=== PATIENT | female | born 1930 | race Caucasian/White ===

== ENCOUNTER → 2016-06-16 | Outpatient (CLI) | payer MEDICARE, BC ==
[~2016-06-16] MED LIST: AMITRIPTYLINE H25 MG PO; AMITRYPTYLINE PO; AMLODIPINE BESYL5 MG PO; BYSTOLIC2.5 MG PO; BYSTOLIC5 MG PO; CALCIUM 1,2001 EACH PO; CALCIUM 500 +1 EAC2 PO; CALCIUM 600 MG1 EAC1 PO; CENTRUM SILVER PO; GABAPENTIN600 MG PO; HYDROCODON-ACE1 EAC1 PO; HYDROCODON-ACE1 EAC5 PO; HYDROCODON-ACE1 EAC9 PO; LASIX PO; LEVOTHYROXINE100 MCG PO; LORTAB 7.5-5001 TAB PO; MAXZIDE 75/50 T1 TA1 PO; MAXZIDE 75/50 T1 TAB PO; MOBIC PO; MULTI-VITAMIN1 EACH PO; MULTIPLE VITAMI1 T11 PO; NEURONTIN PO; NEURONTIN300 MG PO; OCUVITE EYE HE1 EACH PO; OMEPRAZOLE20 M2 PO; PERCOCET10 PO; PRILOSEC PO; SYNTHROID PO; SYNTHROID112 MCG PO; SYNTHROID125 PO; TRIAMTERENE-HC1 EACH PO; VITAMIN D 4001 UDTAB PO; VOLTAREN75 MG; VOLTAREN75 MG PO; ZYRTEC PO
--- NOTE | ~2016-06-16 | US6 ---
[facility] A Service of [facility] & [facility] RADIOLOGY TEXT RESULTS PATIENT: LEENA DAWSON [facility] UNIT #: [id number] AGE: [address]: Phuong Coelho APRN SEX: F ORDER DR: [id number] [facility] [address]. [place], [place] [address] [id number] O MR#: [id number] Acc #: [id number] NAME: LEENA DAWSON. : 1930 SEX: F STUDY DATE/TIME: 06/16/2016 8:54 [facility] RO[facility]: STUDY DESCRIPTION: US Abdominal Limited Attending Physician: Phuong Coelho A.P.R.N. Referring Physician: Phuong Coelho A.P.R.N. Ordering Physician: Phuong Coelho A.P.R.N. Primary Care Physician: Ethan Gill M.D. MEDICAL IMAGING REPORT This report is preliminary unless electronic signature is present EXAM Right upper quadrant ultrasound. INDICATION Abnormal elevated liver function tests. TECHNIQUE Mehta-scale and color Doppler sonographic images were obtained through the right upper quadrant. FINDINGS Visualized portions of the pancreas appear unremarkable. Liver measures within normal size limits and is probably mildly steatotic. The patient does have some cortical thinning on the right kidney which may reflect some underlying chronic medical renal disease. Multiple stones are identified within the gallbladder but there is no gallbladder wall thickening or pericholecystic fluid. There is no intra or extrahepatic biliary dilatation. Main portal vein is patent with hepatopetal flow. IMPRESSION 1. Suspected diffuse hepatic steatosis. 2. Cholelithiasis without evidence of acute cholecystitis. 3. Patient does have some cortical thinning within the right kidney which could reflect some underlying chronic medical renal disease. Dictated by... Sherly Orozco M.D. THIS IS AN ELECTRONICALLY VERIFIED REPORT Sherly Orozco M.D. at 06/16/2016 4:56 PM AFF/tmw [facility] A Service of [facility] & [facility] RADIOLOGY TEXT RESULTS PATIENT: LEENA DAWSON LOCATION: [facility] #: [id number] : [birth year] UNIT #: [id number] AGE: [address]: Phuong Coelho APRN SEX: F ORDER DR: TD: 06/16/2016 14:32 JOB #: [id number] MEDICAL IMAGING REPORT Page 1 of 1 COPY
== END | disposition home or self-care (01) ==
LOC: CGUS 08:08
DX: R74.8 Abnormal levels of other serum enzymes (principal); K80.20 Calculus of gallbladder without cholecystitis without obstruction
CPT/HCPCS: 76705

== ENCOUNTER → 2016-07-28 | Outpatient (CLI) | payer MEDICARE, BC ==
--- NOTE | ~2016-07-28 | EKG ---
PATIENT: LEENA DAWSON UNIT #: [id number] Ventricular Rate: 63 BPM Atrial Rate: 63 BPM P-R Interval: 194 ms QRS Duration: 72 ms Q-T Interval: 424 ms QTC Calculation(Bezet): 433 ms P Parker: 62 degrees Calculated R Parker: -15 degrees Calculated T Parker: 31 degrees Diagnosis Line: Sinus rhythm Diagnosis Line: Normal ECG Diagnosis Line: When compared with ECG of 11-NOV-2009 13:43, Diagnosis Line: No significant change was found Diagnosis Line: Confirmed by XI SIN MD ([id number]) on Diagnosis Line: 07/28/2016 10:44:46 PM INTERPRETING MD: IZZY
[2016-07-28 13:29] LABS: BILIRUBIN,TOTAL 0.9 mg/dL (0.2-2.0); BUN/CREATININE RATIO 31.42; CALCIUM SERUM 9.2 mg/dL (8.4-10.2); CREATININE SERUM 0.7 mg/dL (0.6-1.4); GLOM FILT RATE Estimated 80.1 mL/min (>60); POTASSIUM 4.7 mmol/L (3.5-5.1); PROTEIN TOTAL SERUM 6.5 g/dL (6.0-8.3)
== END | disposition home or self-care (01) ==
LOC: CAMB 10:39
PROVIDERS: Surgery
DX: Z01.818 Encounter for other preprocedural examination (principal); K80.20 Calculus of gallbladder without cholecystitis without obstruction
CPT/HCPCS: 36415; 80053; 93005

== ENCOUNTER → 2016-08-04 | Day surgery (SDC) | payer MEDICARE, BC ==
--- NOTE | ~2016-08-04 | OR ---
Unit #: [id number] #: [id number] Patient: LEENA DAWSON [id number] [facility]. [address] [address] [id number] O MR#: [id number] NAME: LEENA DAWSON ROOM: Date of Procedure: 08/04/2016 Admission Date: 08/04/2016 Surgeon: Dante Montalvo Jr., M.D. : 1930 Attending Physician: Dante Montalvo Jr., M.D. Primary Care Physician: Ethan Gill M.D. OPERATIVE REPORT INDICATIONS FOR PROCEDURE The patient is an 85-year-old white female, recently was having some episodes of colicky pain. She has had a workup and noted to have evidence of cholelithiasis and chronic cholecystitis. It was felt she needed a laparoscopic cholecystectomy. She is brought in this time for this procedure at her request. She understands the procedure including the risks, including that of intra-abdominal organ injury, common duct injury, biliary leak, and bleeding, and consents. PREOPERATIVE DIAGNOSES Chronic cholecystitis and cholelithiasis. POSTOPERATIVE DIAGNOSES Chronic cholecystitis and cholelithiasis, noting multiple small stones within the gallbladder and chronic inflammation. There were also a few adhesions in the right lower quadrant of the abdomen. ANESTHESIA General with endotracheal intubation. PROCEDURE PERFORMED Laparoscopic cholecystectomy. DESCRIPTION OF PROCEDURE The patient was positioned in supine position. After being anesthetized and intubated, she was prepped and draped in routine fashion for laparoscopic cholecystectomy. A small infraumbilical incision was made approximately a 1 cm in length. This was carried down to the fascia. The fascia in the umbilicus was lifted with a towel clip, and a Veress needle introduced in the abdomen. The abdomen was then inflated with CO2 gas. A 5-mm port was introduced in the abdomen followed by the camera. There was no evidence of any injury related to introduction of the port of the Veress needle. Brief intra-abdominal exploration was carried out. The patient was noted to have few adhesions in the right lower quadrant of the abdomen otherwise except for chronic inflamed gallbladder. No other specific abnormalities. She did have somewhat of a globular liver. Two 5-mm ports were placed laterally and an 11-mm port just to the right of the upper midline. The gallbladder was lifted. The gallbladder was very dilated. The dissection was carried out in the triangle of Calot, cystic duct was isolated only 1 mm or so in diameter was hemoclipped x4 and divided approximately 1 cm from its junction with the common duct. Cystic artery was identified, hemoclipped x3, and divided. The gallbladder was Unit #: [id number] #: [id number] Patient: LEENA DAWSON then removed from its bed with the hook cautery using a current of 20 and after it was released, it was placed in EndoCatch bag and brought out through the larger port site. The port was replaced. Subhepatic space checked. There was no evidence of any bleeding from the gallbladder bed. The clips on cystic duct and cystic artery were intact with no evidence of any leak or bleeding. A small amount of bile spilled with manipulation of the gallbladder was then absorbed on a couple of sponges that were packed directly in and brought directly out. After sponge count was correct x3 and again total hemostasis was noted, the CO2 was expressed from the abdomen. The ports were removed. There was no evidence of any bleeding from the port sites. The port sites were injected with 0.5% Marcaine with epinephrine. The fascia in the larger port site was approximated with 2 separate [id number] 0 Vicryl sutures. The wound was irrigated. After hemostasis achieved with Bovie cautery, skin edges were approximated with stainless-steel skin clips and skin stapling device. Sterile dressings were applied externally. Estimated blood loss less than 25 to 30 mL. The patient received less than 1500 mL crystalloid solution during the procedure. Sponges and instrument counts were correct x3. No drains used. No complications. The patient was taken to the recovery room with stable vital signs in satisfactory condition. Dictated by... Dante Montalvo Jr., M.D. JMB/levi TD: 08/04/2016 19:14 JOB #: [id number] CC: Ethan Gill M.D. OPERATIVE REPORT Page 1 of 1 X Dante Montalvo MD PROCEDURE OPERATIVE NOTE
== END | disposition home or self-care (01) ==
LOC: CSUR 07:15
DX: K80.10 Calculus of gallbladder with chronic cholecystitis without obstruction (principal); K66.0 Peritoneal adhesions (postprocedural) (postinfection); K21.9 Gastro-esophageal reflux disease without esophagitis; I10 Essential (primary) hypertension; E89.0 Postprocedural hypothyroidism; H54.41 Blindness, right eye, normal vision left eye; M19.90 Unspecified osteoarthritis, unspecified site; M81.0 Age-related osteoporosis without current pathological fracture; Z79.891 Long term (current) use of opiate analgesic; Z79.899 Other long term (current) drug therapy; Z88.6 Allergy status to analgesic agent; Z91.040 Latex allergy status; Z96.653 Presence of artificial knee joint, bilateral; Z90.711 Acquired absence of uterus with remaining cervical stump; Z98.49 Cataract extraction status, unspecified eye; Z98.890 Other specified postprocedural states
CPT/HCPCS: 88304; J0690; J1170; J1650; J1885; J2250; J2270; J3010